=== PATIENT | female | born 1930 | race Caucasian/White ===

== ENCOUNTER 2018-09-03 09:50 | Inpatient (IN) | payer OTHER ==
[2018-09-03 10:19] LABS: ADD MAN DIFF? NO
[2018-09-03 10:27] LABS: WHITE BLOOD COUNT 7.3 10^3/ul (4.8-10.8)
[2018-09-03 10:27] LABS: BASOPHIL # 0.1 10^3/ul (0.0-0.1); EOSINOPHILS # 0.4 10^3/ul (0.0-0.5); EOSINOPHILS % 5.4 % (0.0-7.0); HEMATOCRIT 24.1 % (37.0-47.0); HEMOGLOBIN 7.4 g/dl (12.0-16.0); LYMPHOCYTES # 0.8 10^3/ul (0.8-2.9); LYMPHOCYTES % 11.4 % (15.0-51.0); MEAN CORPUSCULAR HEMOGLOBIN 28.1 pg (29.0-33.0); MEAN CORPUSCULAR HGB CONC 30.7 g/dl (32.0-37.0); MEAN CORPUSCULAR VOLUME 91.6 fl (82.0-101.0); MEAN PLATELET VOLUME 8.1 fl (7.4-10.4); MONOCYTE # 0.6 10^3/ul (0.3-0.9); MONOCYTES % 8.1 % (0.0-11.0); NEUTROPHIL # 5.4 10^3/ul (1.6-7.5); NEUTROPHILS % 73.6 % (39.0-77.0); PLATELET COUNT 762 10^3/UL (140-415); RED BLOOD COUNT 2.63 10^6/ul (4.20-5.40); RED CELL DISTRIBUTION WIDTH 17.2 % (11.5-14.5)
[2018-09-03] MEDS: SOD CHLORIDE 0.9% 1,000 ML IV (10:36)
[2018-09-03 10:47] LABS: ALANINE AMINOTRANSFERASE 17 IU/L (13-69); ALBUMIN 3.3 g/dl (3.3-4.9); ALKALINE PHOSPHATASE 99 IU/L (42-121); ANION GAP 14 (5-13); ASPARTATE AMINO TRANSFERASE 26 IU/L (15-46); BLOOD UREA NITROGEN 14 mg/dl (7-20); CALCIUM 9.3 mg/dl (8.4-10.2); CARBON DIOXIDE 27 mmol/L (21-31); CHLORIDE 96 mmol/L (97-110); CREATININE 0.64 mg/dl (0.44-1.00); GLUCOSE 98 mg/dl (70-220); LIPASE 62 U/L (23-300); POTASSIUM 4.3 mmol/L (3.5-5.1); SODIUM 137 mmol/L (135-144); TOTAL PROTEIN 6.6 g/dl (6.1-8.1)
[2018-09-03 10:59] LABS: TROPONIN-I < 0.012 ng/ml (0.000-0.120)
[2018-09-03 11:07] LABS: ADD UMIC NO; UR ASCORBIC ACID 20 mg/dL (NEGATIVE); UR BILIRUBIN (Dip) NEGATIVE (NEGATIVE); UR BLOOD (Dip) NEGATIVE (NEGATIVE); UR CLARITY CLEAR (CLEAR); UR COLOR YELLOW (YELLOW); UR GLUCOSE (Dip) NEGATIVE (NEGATIVE); UR KETONES (Dip) NEGATIVE (NEGATIVE); UR LEUKOCYTE ESTERASE (Dip) NEGATIVE Leu/ul (NEGATIVE); UR NITRITE (Dip) NEGATIVE (NEGATIVE); UR SPECIFIC GRAVITY (Dip) 1.008 (1.003-1.030); UR TOTAL PROTEIN (Dip) NEGATIVE (NEGATIVE); UR UROBILINOGEN (Dip) NEGATIVE (NEGATIVE)
[2018-09-03] MEDS ORDERED: ONDANSETRON 4 MG TAB PO (18:00)
[2018-09-03] MEDS ORDERED: ACETAMINOPHEN 325 MG TAB PO (18:00)
[2018-09-03] MEDS ORDERED: HYDROCODONE/APAP (5/325) TAB PO (18:00)
[2018-09-03] MEDS ORDERED: SENNA TAB PO (18:00)
[2018-09-03] MEDS: ATORVASTATIN 40 MG TAB PO (20:35)
[2018-09-03] MEDS: METOPROLOL 50 MG TAB PO (20:36)
[2018-09-03] MEDS: DOCUSATE SODIUM 100 MG CAP PO (20:36)
[2018-09-03] MEDS: MAGNESIUM OXIDE 400 MG TAB PO (20:36)
[2018-09-03 23:41] LABS: IMMEDIATE SPIN CROSSMATCH 1 2
[2018-09-04] MEDS: FUROSEMIDE 20 MG INJ IV (04:09)
[2018-09-04] MEDS: LEVOTHYROXINE 125 MCG TAB PO (06:54)
[2018-09-04] MEDS ORDERED: ETOMIDATE 20 MG INJ (07:00)
[2018-09-04] MEDS ORDERED: LIDOCAINE 2% (SDV) 5 ML INJ (07:00)
[2018-09-04 07:04] LABS: OCCULT BLOOD STOOL POSITIVE (NEGATIVE)
[2018-09-04] MEDS ORDERED: ONDANSETRON 4 MG INJ IV (09:00)
[2018-09-04 11:46] LABS: ADD MAN DIFF? NO
[2018-09-04 11:51] LABS: WHITE BLOOD COUNT 5.8 10^3/ul (4.8-10.8)
[2018-09-04 11:51] LABS: BASOPHIL # 0.1 10^3/ul (0.0-0.1); EOSINOPHILS # 0.4 10^3/ul (0.0-0.5); EOSINOPHILS % 7.4 % (0.0-7.0); HEMATOCRIT 31.8 % (37.0-47.0); HEMOGLOBIN 10.3 g/dl (12.0-16.0); LYMPHOCYTES # 0.9 10^3/ul (0.8-2.9); MEAN CORPUSCULAR HEMOGLOBIN 28.5 pg (29.0-33.0); MEAN CORPUSCULAR HGB CONC 32.4 g/dl (32.0-37.0); MEAN CORPUSCULAR VOLUME 88.1 fl (82.0-101.0); MEAN PLATELET VOLUME 8.1 fl (7.4-10.4); MONOCYTE # 0.5 10^3/ul (0.3-0.9); MONOCYTES % 8.4 % (0.0-11.0); NEUTROPHIL # 3.9 10^3/ul (1.6-7.5); NEUTROPHILS % 67.7 % (39.0-77.0); PLATELET COUNT 624 10^3/UL (140-415); RED BLOOD COUNT 3.61 10^6/ul (4.20-5.40); RED CELL DISTRIBUTION WIDTH 15.8 % (11.5-14.5)
[2018-09-04 12:07] LABS: RETICULOCYTE COUNT # 0.097 X10^6 (0.020-0.110); RETICULOCYTE COUNT % 2.7 % (0.5-1.5)
[2018-09-04 12:07] LABS: RETICULOCYTE RBC 3.63
[2018-09-04 12:12] LABS: LACTATE DEHYDROGENASE 427 IU/L (313-618)
[2018-09-04 12:13] LABS: IRON 90 ug/dl (35-150)
[2018-09-04 12:22] LABS: % IRON SATURATION 36 % SAT (22-52); TOTAL IRON BINDING CAPACITY 250 ug/dl (241-421)
[2018-09-04 12:32] LABS: FREE T4 (FREE THYROXINE) 1.95 ng/dl (0.85-1.93)
[2018-09-04 12:46] LABS: THYROID STIMULATING HORMONE 0.212 MIU/L (0.465-4.680)
[2018-09-04 12:50] LABS: FERRITIN 50.9 ng/ml (11.1-264.0)
[2018-09-04] MEDS: BISACODYL (EC) 5 MG TAB PO (12:57)
[2018-09-04] MEDS: ASPIRIN 81 MG TAB PO (12:57)
[2018-09-04] MEDS: MAGNESIUM OXIDE 400 MG TAB PO ×2 (12:57→21:11)
[2018-09-04] MEDS: DOCUSATE SODIUM 100 MG CAP PO ×2 (12:57→21:11)
[2018-09-04] MEDS: MULTIVITAMINS THERAPEUTIC TAB PO (12:57)
[2018-09-04] MEDS: ASCORBIC ACID 250 MG TAB PO (12:57)
[2018-09-04] MEDS: POLYETHYLENE GLYCOL 3350 119 GM POWDER PO ×2 (12:58→19:01)
[2018-09-04] MEDS: LACTULOSE 30ML CUP PO ×3 (12:58→18:31)
[2018-09-04] MEDS: METOPROLOL 50 MG TAB PO ×2 (12:58→21:12)
[2018-09-04 13:20] LABS: FOLATE 11.9 ng/ml (2.8-20.0)
[2018-09-04 13:20] LABS: ERYTHROCYTE SEDIMENTATION RATE 65 mm/Hr (0-30)
[2018-09-04] MEDS: FERROUS SULFATE (EC) 325 MG TAB PO (13:34)
[2018-09-04] MEDS: ATORVASTATIN 40 MG TAB PO (21:11)
[2018-09-05 01:37] LABS: PROTEIN, TOTAL 5.5 g/dL (6.1-8.1)
[2018-09-05] MEDS: LEVOTHYROXINE 100 MCG TAB PO (05:20)
[2018-09-05 05:37] LABS: ADD MAN DIFF? NO
[2018-09-05 05:39] LABS: WHITE BLOOD COUNT 7.3 10^3/ul (4.8-10.8)
[2018-09-05 05:39] LABS: BASOPHIL # 0.1 10^3/ul (0.0-0.1); BASOPHILS % 1.1 % (0.0-2.0); EOSINOPHILS # 0.5 10^3/ul (0.0-0.5); EOSINOPHILS % 6.2 % (0.0-7.0); HEMOGLOBIN 9.9 g/dl (12.0-16.0); LYMPHOCYTES # 1.1 10^3/ul (0.8-2.9); LYMPHOCYTES % 15.2 % (15.0-51.0); MEAN CORPUSCULAR HEMOGLOBIN 28.3 pg (29.0-33.0); MEAN CORPUSCULAR HGB CONC 31.9 g/dl (32.0-37.0); MEAN CORPUSCULAR VOLUME 88.6 fl (82.0-101.0); MEAN PLATELET VOLUME 8.5 fl (7.4-10.4); MONOCYTE # 0.6 10^3/ul (0.3-0.9); MONOCYTES % 8.5 % (0.0-11.0); NEUTROPHILS % 68.6 % (39.0-77.0); PLATELET COUNT 605 10^3/UL (140-415); RED CELL DISTRIBUTION WIDTH 16.1 % (11.5-14.5)
[2018-09-05 05:59] LABS: INR 1.16; PROTIME 14.9 Sec (11.9-14.9); PT RATIO 1.2
[2018-09-05 06:00] LABS: PARTIAL THROMBOPLASTIN TIME 33.5 Sec (23.0-35.0)
[2018-09-05 06:09] LABS: ANION GAP 9 (5-13); BLOOD UREA NITROGEN 10 mg/dl (7-20); CALCIUM 8.9 mg/dl (8.4-10.2); CARBON DIOXIDE 24 mmol/L (21-31); CHLORIDE 108 mmol/L (97-110); CREATININE 0.59 mg/dl (0.44-1.00); GLUCOSE 78 mg/dl (70-220); POTASSIUM 3.1 mmol/L (3.5-5.1); SODIUM 141 mmol/L (135-144)
[2018-09-05] MEDS ORDERED: LEVOTHYROXINE 125 MCG TAB PO (07:00)
[2018-09-05] MEDS ORDERED: PROPOFOL 200 MG INJ (07:00)
[2018-09-05] MEDS: POTASSIUM CHLORIDE 50 ML IVPB ×3 (08:02→09:57)
[2018-09-05] MEDS: ASCORBIC ACID 250 MG TAB PO (08:57)
[2018-09-05] MEDS: MULTIVITAMINS THERAPEUTIC TAB PO (08:57)
[2018-09-05] MEDS: FERROUS SULFATE (EC) 325 MG TAB PO (08:58)
[2018-09-05] MEDS: DOCUSATE SODIUM 100 MG CAP PO ×2 (08:58→20:31)
[2018-09-05] MEDS: MAGNESIUM OXIDE 400 MG TAB PO ×2 (08:58→20:31)
[2018-09-05] MEDS: ASPIRIN 81 MG TAB PO (08:59)
[2018-09-05] MEDS: METOPROLOL 50 MG TAB PO ×2 (09:00→20:31)
[2018-09-05 10:11] LABS: HAPTOGLOBIN 299 mg/dL (43-212)
[2018-09-05] MEDS ORDERED: LABETALOL HCL 20MG INJ IV (13:00)
[2018-09-05] MEDS ORDERED: ALBUTEROL 0.083% (NEB) 2.5 MG/3 ML AMP (14:04)
[2018-09-05] MEDS: ALBUTEROL 0.083% (NEB) 2.5 MG/3 ML AMP HHN (14:09)
[2018-09-05 17:56] LABS: ALBUMIN 2.6 g/dL (3.8-4.8); ALPHA-1-GLOBULINS 0.5 g/dL (0.2-0.3); BETA 2 GLOBULINS 0.3 g/dL (0.2-0.5); BETA GLOBULINS 0.4 g/dL (0.4-0.6); GAMMA GLOBULINS 0.8 g/dL (0.8-1.7)
[2018-09-05] MEDS: ATORVASTATIN 40 MG TAB PO (20:31)
[2018-09-06 05:11] LABS: ADD MAN DIFF? NO
[2018-09-06 05:16] LABS: WHITE BLOOD COUNT 8.8 10^3/ul (4.8-10.8)
[2018-09-06 05:16] LABS: BASOPHIL # 0.1 10^3/ul (0.0-0.1); BASOPHILS % 0.8 % (0.0-2.0); EOSINOPHILS # 0.6 10^3/ul (0.0-0.5); EOSINOPHILS % 6.5 % (0.0-7.0); HEMATOCRIT 32.3 % (37.0-47.0); HEMOGLOBIN 10.3 g/dl (12.0-16.0); LYMPHOCYTES # 1.4 10^3/ul (0.8-2.9); LYMPHOCYTES % 15.6 % (15.0-51.0); MEAN CORPUSCULAR HEMOGLOBIN 28.8 pg (29.0-33.0); MEAN CORPUSCULAR HGB CONC 31.9 g/dl (32.0-37.0); MEAN CORPUSCULAR VOLUME 90.2 fl (82.0-101.0); MEAN PLATELET VOLUME 8.7 fl (7.4-10.4); MONOCYTE # 0.6 10^3/ul (0.3-0.9); MONOCYTES % 6.5 % (0.0-11.0); NEUTROPHIL # 6.2 10^3/ul (1.6-7.5); NEUTROPHILS % 70.3 % (39.0-77.0); PLATELET COUNT 565 10^3/UL (140-415); RED BLOOD COUNT 3.58 10^6/ul (4.20-5.40); RED CELL DISTRIBUTION WIDTH 16.2 % (11.5-14.5)
[2018-09-06] MEDS: LEVOTHYROXINE 100 MCG TAB PO (06:40)
[2018-09-06] MEDS: MAGNESIUM OXIDE 400 MG TAB PO ×2 (09:20→20:41)
[2018-09-06] MEDS: DOCUSATE SODIUM 100 MG CAP PO ×2 (09:20→20:41)
[2018-09-06] MEDS: ASCORBIC ACID 250 MG TAB PO (09:21)
[2018-09-06] MEDS: MULTIVITAMINS THERAPEUTIC TAB PO (09:21)
[2018-09-06] MEDS: ASPIRIN 81 MG TAB PO (09:21)
[2018-09-06] MEDS: METOPROLOL 50 MG TAB PO ×2 (09:22→20:41)
[2018-09-06] MEDS: FERROUS SULFATE (EC) 325 MG TAB PO (09:23)
[2018-09-06] MEDS: ATORVASTATIN 40 MG TAB PO (20:41)
[2018-09-07] MEDS: LEVOTHYROXINE 100 MCG TAB PO (06:19)
[2018-09-07 06:20] LABS: ADD MAN DIFF? NO
[2018-09-07 06:41] LABS: WHITE BLOOD COUNT 7.4 10^3/ul (4.8-10.8)
[2018-09-07 06:41] LABS: BASOPHIL # 0.1 10^3/ul (0.0-0.1); BASOPHILS % 1.1 % (0.0-2.0); EOSINOPHILS # 0.7 10^3/ul (0.0-0.5); HEMATOCRIT 30.7 % (37.0-47.0); HEMOGLOBIN 9.9 g/dl (12.0-16.0); LYMPHOCYTES # 1.2 10^3/ul (0.8-2.9); LYMPHOCYTES % 16.3 % (15.0-51.0); MEAN CORPUSCULAR HEMOGLOBIN 28.5 pg (29.0-33.0); MEAN CORPUSCULAR HGB CONC 32.2 g/dl (32.0-37.0); MEAN CORPUSCULAR VOLUME 88.5 fl (82.0-101.0); MEAN PLATELET VOLUME 9.5 fl (7.4-10.4); MONOCYTE # 0.6 10^3/ul (0.3-0.9); MONOCYTES % 8.2 % (0.0-11.0); NEUTROPHIL # 4.8 10^3/ul (1.6-7.5); PLATELET COUNT 398 10^3/UL (140-415); RED BLOOD COUNT 3.47 10^6/ul (4.20-5.40)
[2018-09-07] MEDS: FERROUS SULFATE (EC) 325 MG TAB PO (08:45)
[2018-09-07] MEDS: ASPIRIN 81 MG TAB PO (08:46)
[2018-09-07] MEDS: MAGNESIUM OXIDE 400 MG TAB PO ×2 (08:46→20:09)
[2018-09-07] MEDS: MULTIVITAMINS THERAPEUTIC TAB PO (08:46)
[2018-09-07] MEDS: ASCORBIC ACID 250 MG TAB PO (08:46)
[2018-09-07] MEDS: METOPROLOL 50 MG TAB PO ×2 (08:47→20:14)
[2018-09-07] MEDS: DOCUSATE SODIUM 100 MG CAP PO ×2 (08:47→20:08)
[2018-09-07] MEDS: ATORVASTATIN 40 MG TAB PO (20:08)
[2018-09-08 05:01] LABS: ADD MAN DIFF? NO
[2018-09-08 05:16] LABS: BASOPHIL # 0.1 10^3/ul (0.0-0.1); EOSINOPHILS # 0.7 10^3/ul (0.0-0.5); EOSINOPHILS % 8.5 % (0.0-7.0); HEMATOCRIT 31.4 % (37.0-47.0); LYMPHOCYTES # 1.6 10^3/ul (0.8-2.9); LYMPHOCYTES % 20.1 % (15.0-51.0); MEAN CORPUSCULAR HEMOGLOBIN 28.6 pg (29.0-33.0); MEAN CORPUSCULAR HGB CONC 31.8 g/dl (32.0-37.0); MEAN CORPUSCULAR VOLUME 89.7 fl (82.0-101.0); MEAN PLATELET VOLUME 8.7 fl (7.4-10.4); MONOCYTE # 0.6 10^3/ul (0.3-0.9); MONOCYTES % 7.5 % (0.0-11.0); NEUTROPHIL # 4.9 10^3/ul (1.6-7.5); NEUTROPHILS % 62.5 % (39.0-77.0); PLATELET COUNT 493 10^3/UL (140-415); RED CELL DISTRIBUTION WIDTH 15.9 % (11.5-14.5)
[2018-09-08 05:16] LABS: WHITE BLOOD COUNT 7.9 10^3/ul (4.8-10.8)
[2018-09-08] MEDS: LEVOTHYROXINE 100 MCG TAB PO (06:14)
[2018-09-08] MEDS: METOPROLOL 50 MG TAB PO ×2 (09:17→20:28)
[2018-09-08] MEDS: MAGNESIUM OXIDE 400 MG TAB PO ×2 (09:17→20:25)
[2018-09-08] MEDS: DOCUSATE SODIUM 100 MG CAP PO ×2 (09:18→20:25)
[2018-09-08] MEDS: ASCORBIC ACID 250 MG TAB PO (09:18)
[2018-09-08] MEDS: MULTIVITAMINS THERAPEUTIC TAB PO (09:18)
[2018-09-08] MEDS: FERROUS SULFATE (EC) 325 MG TAB PO (09:18)
[2018-09-08] MEDS: ASPIRIN 81 MG TAB PO (09:18)
[2018-09-08] MEDS: ATORVASTATIN 40 MG TAB PO (20:25)
[2018-09-09 05:31] LABS: ADD MAN DIFF? NO
[2018-09-09 05:56] LABS: WHITE BLOOD COUNT 9.2 10^3/ul (4.8-10.8)
[2018-09-09 05:56] LABS: BASOPHIL # 0.1 10^3/ul (0.0-0.1); EOSINOPHILS # 0.8 10^3/ul (0.0-0.5); EOSINOPHILS % 9.1 % (0.0-7.0); HEMATOCRIT 32.2 % (37.0-47.0); HEMOGLOBIN 10.3 g/dl (12.0-16.0); LYMPHOCYTES # 1.6 10^3/ul (0.8-2.9); LYMPHOCYTES % 17.4 % (15.0-51.0); MEAN CORPUSCULAR HEMOGLOBIN 28.4 pg (29.0-33.0); MEAN CORPUSCULAR VOLUME 88.7 fl (82.0-101.0); MEAN PLATELET VOLUME 9.9 fl (7.4-10.4); MONOCYTE # 0.7 10^3/ul (0.3-0.9); MONOCYTES % 7.9 % (0.0-11.0); NEUTROPHIL # 5.9 10^3/ul (1.6-7.5); NEUTROPHILS % 64.2 % (39.0-77.0); PLATELET COUNT 367 10^3/UL (140-415); RED BLOOD COUNT 3.63 10^6/ul (4.20-5.40)
[2018-09-09] MEDS: LEVOTHYROXINE 100 MCG TAB PO (06:26)
[2018-09-09] MEDS: MAGNESIUM OXIDE 400 MG TAB PO ×2 (08:40→21:27)
[2018-09-09] MEDS: METOPROLOL 50 MG TAB PO ×2 (08:40→21:27)
[2018-09-09] MEDS: MULTIVITAMINS THERAPEUTIC TAB PO (08:40)
[2018-09-09] MEDS: FERROUS SULFATE (EC) 325 MG TAB PO (08:40)
[2018-09-09] MEDS: ASPIRIN 81 MG TAB PO (08:41)
[2018-09-09] MEDS: ASCORBIC ACID 250 MG TAB PO (08:41)
[2018-09-09] MEDS: DOCUSATE SODIUM 100 MG CAP PO ×2 (08:41→21:27)
[2018-09-09] MEDS: ATORVASTATIN 40 MG TAB PO (21:27)
[2018-09-10] MEDS: LEVOTHYROXINE 100 MCG TAB PO (06:03)
[2018-09-10] MEDS: ASPIRIN 81 MG TAB PO (08:33)
[2018-09-10] MEDS: MAGNESIUM OXIDE 400 MG TAB PO ×2 (08:33→20:46)
[2018-09-10] MEDS: ASCORBIC ACID 250 MG TAB PO (08:33)
[2018-09-10] MEDS: METOPROLOL 50 MG TAB PO ×2 (08:33→20:47)
[2018-09-10] MEDS: FERROUS SULFATE (EC) 325 MG TAB PO (08:33)
[2018-09-10] MEDS: DOCUSATE SODIUM 100 MG CAP PO ×2 (08:33→20:46)
[2018-09-10] MEDS: MULTIVITAMINS THERAPEUTIC TAB PO (10:00)
[2018-09-10] MEDS: ATORVASTATIN 40 MG TAB PO (20:46)
[2018-09-10] MEDS: ZOLPIDEM 5 MG TAB PO (23:06)
[2018-09-11 05:11] LABS: ADD MAN DIFF? NO
[2018-09-11 05:18] LABS: BASOPHIL # 0.1 10^3/ul (0.0-0.1); BASOPHILS % 1.1 % (0.0-2.0); EOSINOPHILS % 10.9 % (0.0-7.0); HEMATOCRIT 34.3 % (37.0-47.0); HEMOGLOBIN 10.7 g/dl (12.0-16.0); LYMPHOCYTES # 1.4 10^3/ul (0.8-2.9); LYMPHOCYTES % 15.6 % (15.0-51.0); MEAN CORPUSCULAR HEMOGLOBIN 28.5 pg (29.0-33.0); MEAN CORPUSCULAR HGB CONC 31.2 g/dl (32.0-37.0); MEAN CORPUSCULAR VOLUME 91.2 fl (82.0-101.0); MEAN PLATELET VOLUME 9.9 fl (7.4-10.4); MONOCYTE # 0.8 10^3/ul (0.3-0.9); MONOCYTES % 8.5 % (0.0-11.0); NEUTROPHIL # 5.7 10^3/ul (1.6-7.5); NEUTROPHILS % 63.6 % (39.0-77.0); PLATELET COUNT 413 10^3/UL (140-415); RED BLOOD COUNT 3.76 10^6/ul (4.20-5.40); RED CELL DISTRIBUTION WIDTH 15.8 % (11.5-14.5)
[2018-09-11 05:49] LABS: ANION GAP 5 (5-13); BLOOD UREA NITROGEN 20 mg/dl (7-20); CARBON DIOXIDE 31 mmol/L (21-31); CHLORIDE 102 mmol/L (97-110); CREATININE 0.61 mg/dl (0.44-1.00); GLUCOSE 82 mg/dl (70-220); POTASSIUM 4.4 mmol/L (3.5-5.1); SODIUM 138 mmol/L (135-144)
[2018-09-11] MEDS: LEVOTHYROXINE 100 MCG TAB PO (06:20)
[2018-09-11] MEDS: FERROUS SULFATE (EC) 325 MG TAB PO (09:23)
[2018-09-11] MEDS: MAGNESIUM OXIDE 400 MG TAB PO ×2 (09:23→21:23)
[2018-09-11] MEDS: ASPIRIN 81 MG TAB PO (09:23)
[2018-09-11] MEDS: MULTIVITAMINS THERAPEUTIC TAB PO (09:23)
[2018-09-11] MEDS: DOCUSATE SODIUM 100 MG CAP PO ×2 (09:23→21:23)
[2018-09-11] MEDS: ASCORBIC ACID 250 MG TAB PO (09:23)
[2018-09-11] MEDS: METOPROLOL 50 MG TAB PO ×2 (09:24→21:00)
[2018-09-11 13:44] LABS: FREE T3 2.37 pg/ml (2.77-5.27)
[2018-09-11] MEDS: ATORVASTATIN 40 MG TAB PO (21:23)
[2018-09-12] MEDS: PROPOFOL 20 ML (01:12)
[2018-09-12] MEDS: FENTAnyl 50 MCG/ML VIAL (01:13)
[2018-09-12] MEDS: ETOMIDATE 20 MG INJ (01:13)
[2018-09-12] MEDS: LIDOCAINE 2% (SDV) 5 ML INJ (01:14)
[2018-09-12] MEDS: GUAIFENESIN/DM 5ML CUP PO (01:33)
[2018-09-12] MEDS: LEVOTHYROXINE 100 MCG TAB PO (06:15)
[2018-09-12] MEDS: MAGNESIUM OXIDE 400 MG TAB PO ×2 (09:50→21:12)
[2018-09-12] MEDS: ASPIRIN 81 MG TAB PO (09:50)
[2018-09-12] MEDS: FERROUS SULFATE (EC) 325 MG TAB PO (09:50)
[2018-09-12] MEDS: DOCUSATE SODIUM 100 MG CAP PO ×2 (09:50→21:11)
[2018-09-12] MEDS: METOPROLOL 50 MG TAB PO ×2 (09:50→21:12)
[2018-09-12] MEDS: MULTIVITAMINS THERAPEUTIC TAB PO (09:50)
[2018-09-12] MEDS: ATORVASTATIN 40 MG TAB PO (21:12)
[2018-09-13] MEDS: GUAIFENESIN/DM 5ML CUP PO (00:43)
[2018-09-13] MEDS: LEVOTHYROXINE 100 MCG TAB PO (06:21)
[2018-09-13] MEDS: MULTIVITAMINS THERAPEUTIC TAB PO (09:59)
[2018-09-13] MEDS: MAGNESIUM OXIDE 400 MG TAB PO ×2 (09:59→21:12)
[2018-09-13] MEDS: METOPROLOL 50 MG TAB PO ×2 (09:59→21:00)
[2018-09-13] MEDS: ASPIRIN 81 MG TAB PO (09:59)
[2018-09-13] MEDS: FERROUS SULFATE (EC) 325 MG TAB PO (09:59)
[2018-09-13] MEDS: DOCUSATE SODIUM 100 MG CAP PO ×2 (10:01→21:12)
[2018-09-13] MEDS: ATORVASTATIN 40 MG TAB PO (21:12)
[2018-09-13 23:23] LABS: ERYTHROPOIETIN 19.9 mIU/mL (2.6-18.5)
[2018-09-14] MEDS: LEVOTHYROXINE 100 MCG TAB PO (05:57)
[2018-09-14] MEDS: METOPROLOL 50 MG TAB PO ×2 (09:00→20:29)
[2018-09-14] MEDS: ASPIRIN 81 MG TAB PO (10:02)
[2018-09-14] MEDS: FERROUS SULFATE (EC) 325 MG TAB PO (10:02)
[2018-09-14] MEDS: MULTIVITAMINS THERAPEUTIC TAB PO (10:02)
[2018-09-14] MEDS: MAGNESIUM OXIDE 400 MG TAB PO ×2 (10:05→20:28)
[2018-09-14] MEDS: DOCUSATE SODIUM 100 MG CAP PO ×2 (10:05→20:28)
[2018-09-14] MEDS: ATORVASTATIN 40 MG TAB PO (20:28)
[2018-09-15] MEDS: LEVOTHYROXINE 100 MCG TAB PO (05:56)
[2018-09-15 06:17] LABS: ADD MAN DIFF? NO
[2018-09-15 06:23] LABS: BASOPHIL # 0.1 10^3/ul (0.0-0.1); BASOPHILS % 1.6 % (0.0-2.0); EOSINOPHILS # 0.9 10^3/ul (0.0-0.5); EOSINOPHILS % 10.6 % (0.0-7.0); HEMOGLOBIN 10.7 g/dl (12.0-16.0); LYMPHOCYTES # 1.3 10^3/ul (0.8-2.9); LYMPHOCYTES % 15.3 % (15.0-51.0); MEAN CORPUSCULAR HEMOGLOBIN 27.8 pg (29.0-33.0); MEAN CORPUSCULAR HGB CONC 31.5 g/dl (32.0-37.0); MEAN CORPUSCULAR VOLUME 88.3 fl (82.0-101.0); MEAN PLATELET VOLUME 9.5 fl (7.4-10.4); MONOCYTE # 0.8 10^3/ul (0.3-0.9); NEUTROPHIL # 5.1 10^3/ul (1.6-7.5); NEUTROPHILS % 62.1 % (39.0-77.0); PLATELET COUNT 423 10^3/UL (140-415); RED BLOOD COUNT 3.85 10^6/ul (4.20-5.40); RED CELL DISTRIBUTION WIDTH 15.8 % (11.5-14.5)
[2018-09-15 06:23] LABS: WHITE BLOOD COUNT 8.2 10^3/ul (4.8-10.8)
[2018-09-15 07:20] LABS: ANION GAP 5 (5-13); BLOOD UREA NITROGEN 15 mg/dl (7-20); CALCIUM 9.2 mg/dl (8.4-10.2); CARBON DIOXIDE 29 mmol/L (21-31); CHLORIDE 103 mmol/L (97-110); CREATININE 0.67 mg/dl (0.44-1.00); GLUCOSE 81 mg/dl (70-220); POTASSIUM 4.2 mmol/L (3.5-5.1); SODIUM 137 mmol/L (135-144)
[2018-09-15] MEDS: ASPIRIN 81 MG TAB PO (08:42)
[2018-09-15] MEDS: MULTIVITAMINS THERAPEUTIC TAB PO (08:42)
[2018-09-15] MEDS: MAGNESIUM OXIDE 400 MG TAB PO ×2 (08:42→20:20)
[2018-09-15] MEDS: DOCUSATE SODIUM 100 MG CAP PO ×2 (08:42→20:20)
[2018-09-15] MEDS: FERROUS SULFATE (EC) 325 MG TAB PO (08:42)
[2018-09-15] MEDS: METOPROLOL 50 MG TAB PO ×2 (08:43→20:21)
[2018-09-15] MEDS: ATORVASTATIN 40 MG TAB PO (20:20)
[2018-09-16] MEDS: LEVOTHYROXINE 100 MCG TAB PO (06:24)
[2018-09-16] MEDS: MULTIVITAMINS THERAPEUTIC TAB PO (08:40)
[2018-09-16] MEDS: FERROUS SULFATE (EC) 325 MG TAB PO (08:40)
[2018-09-16] MEDS: ASPIRIN 81 MG TAB PO (08:40)
[2018-09-16] MEDS: MAGNESIUM OXIDE 400 MG TAB PO ×2 (08:40→20:52)
[2018-09-16] MEDS: METOPROLOL 50 MG TAB PO ×2 (08:41→20:51)
[2018-09-16] MEDS: DOCUSATE SODIUM 100 MG CAP PO ×2 (08:44→20:51)
[2018-09-16] MEDS: ATORVASTATIN 40 MG TAB PO (20:52)
[2018-09-17] MEDS: LEVOTHYROXINE 100 MCG TAB PO (06:06)
[2018-09-17] MEDS: PANTOPRAZOLE (EC) 40 MG TAB PO (06:06)
[2018-09-17] MEDS: FERROUS SULFATE (EC) 325 MG TAB PO (08:50)
[2018-09-17] MEDS: ASPIRIN 81 MG TAB PO (08:50)
[2018-09-17] MEDS: METOPROLOL 50 MG TAB PO (08:51)
[2018-09-17] MEDS: MAGNESIUM OXIDE 400 MG TAB PO (08:51)
[2018-09-17] MEDS: MULTIVITAMINS THERAPEUTIC TAB PO (08:51)
[2018-09-17] MEDS: DOCUSATE SODIUM 100 MG CAP PO (08:51)
== END 2018-09-17 17:00 | disposition home or self-care (01) | DRG 811 ==
LOC: E/R 09:50 → 2NE 10:29
PROC: 30233N1 Transfusion of Nonautologous Red Blood Cells into Peripheral Vein, Percutaneous Approach (ICD-10-PCS; principal; 2018-09-04 09:00)
PROC: 0DB48ZX Excision of Esophagogastric Junction, Via Natural or Artificial Opening Endoscopic, Diagnostic (ICD-10-PCS; 2018-09-04 09:00)
PROC: 0DB78ZX Excision of Stomach, Pylorus, Via Natural or Artificial Opening Endoscopic, Diagnostic (ICD-10-PCS; 2018-09-04 09:00)
PROC: 0DB68ZX Excision of Stomach, Via Natural or Artificial Opening Endoscopic, Diagnostic (ICD-10-PCS; 2018-09-04 09:00)
PROC: 0DBM8ZX Excision of Descending Colon, Via Natural or Artificial Opening Endoscopic, Diagnostic (ICD-10-PCS; 2018-09-04 09:00)
DX: D62 Acute posthemorrhagic anemia (principal); K57.31 Diverticulosis of large intestine without perforation or abscess with bleeding; K29.71 Gastritis, unspecified, with bleeding; D46.9 Myelodysplastic syndrome, unspecified; E03.9 Hypothyroidism, unspecified; I10 Essential (primary) hypertension; I25.10 Atherosclerotic heart disease of native coronary artery without angina pectoris; E78.5 Hyperlipidemia, unspecified; I73.9 Peripheral vascular disease, unspecified; K44.9 Diaphragmatic hernia without obstruction or gangrene; K64.0 First degree hemorrhoids; K20.9 Esophagitis, unspecified; E87.6 Hypokalemia; D12.4 Benign neoplasm of descending colon; Z88.2 Allergy status to sulfonamides; Z79.82 Long term (current) use of aspirin
CPT/HCPCS: 36415; 36430; 71045; 80048; 80053; 81003; 82270; 82607; 82668; 82728; 82746; 83010; 83540; 83615; 83690; 84155; 84165; 84439; 84443; 84481; 84484; 85025; 85045; 85610; 85651; 85730; 86850; 86900; 86901; 86920; 87081; 87086; 88305; 88312; 88313; 93005; 94640; 94664; 97110; 97116; 97162; 97530; 99285-25